=== PATIENT | male | born 1995 | race Caucasian/White ===

== ENCOUNTER 2017-04-02 02:16 | Observation (INO) | payer MEDICAID, OTHER ==
[2017-04-02] MEDS ORDERED: Acetaminophen 500 MG Tab PO ONE (02:41)
[2017-04-02] MEDS ORDERED: Ibuprofen 600 MG Tab PO ONE (03:37)
[2017-04-02] MEDS ORDERED: Sodium Chloride 0.9% 1,000 ML IV ONE ×2 (03:38→05:21)
[2017-04-02] MEDS ORDERED: Sodium Chloride 0.9% 10 ML Syringe FLUSH PRN (03:40)
[2017-04-02] MEDS: Sodium Chloride 0.9% 2.5 ML Syringe FLUSH PRN ×2 (03:43→04:16)
[2017-04-02] MEDS ORDERED: cefTRIAXone 2 GM in Premix Bag 1 BAG IV ONE (03:52)
[2017-04-02] MEDS ORDERED: Ondansetron 4 MG/2 ML SDV IVPUSH ONE (04:08)
[2017-04-02] MEDS ORDERED: HYDROmorphone 1 MG/ML Syringe IVPUSH ONE (04:08)
[2017-04-02 04:14] LABS: CHLORIDE,CL 104 mmol/L (98-110); SODIUM,NA 136 mmol/L (136-146)
[2017-04-02] MEDS ORDERED: HYDROmorphone 1 MG/ML Syringe IM ONE (05:11)
[2017-04-02] MEDS ORDERED: HYDROmorphone 1 MG/ML Syringe IV ONE (05:30)
--- NOTE | 2017-04-02 06:04 | PCM.SN ---
- Free Text/Narrative Note: Notified by Dr Adam for request for Lumbar puncture. I spoke with the patient and explained the risks and benefits of lumbar puncture including but not limited to: bleeding, infection, post dural puncture headache, and insertion site pain. At this time he wishes to proceed at this time. Pt was positioned lateral L3-4 interspace was palpated. Sterile technique was maintained. Betadine swab x 3, drape was placed. 1% lidocaine 3mL was infiltrated. 20g Spinal needle was introduced and I was unable to obtain CSF. Pt was re-positioned sitting, patient was re-prepped with betadine swab x 3. L3- 4 interspace was re-identified. 1% Lidocaine 3mL was infiltrated again, 20g Spinal needle was introduced and CSF return was obtained. 4 tubes each with 2mL of CSF was obtained. Tube 1 was blood tinged in color, tubes 2-4 were clear on visual inspection. Needle was withdrawn, back was cleaned, and bandaid was placed over the insertion site. Tubes 1-4 were sent to lab. Pt tolerated the procedure well.
--- NOTE | 2017-04-02 06:10 | PCM.PREANE ---
Preanesthetic Assessment - Procedure Proposed Procedure: Lumbar Puncture - Anesthesia/Transfusion/Family Hx Anesthesia History: Prior Anesthesia Without Reaction - Review of Systems General: Fever Pulmonary: No Symptoms Cardiovascular: No Symptoms Gastrointestinal: No Symptoms Neurological: Other (Severe Headache) Other: Reports: None - Physical Assessment O2 Sat by Pulse Oximetry: 92 Respiratory Rate: 18 Temperature: 99.8 F Vital Signs: Last Vital Signs Temp 99.8 F 04/02/17 05:33 Pulse 118 H 04/02/17 05:33 Resp 18 04/02/17 05:33 BP 136/64 04/02/17 04:23 Pulse Ox 92 L 04/02/17 05:33 Height: 6 ft 1 in Weight: 120.202 kg ASA Class: 2 Mental Status: Alert & Oriented x3 Airway Class: Mallampati = 2 Dentition: Reports: Normal Dentition Thyro-Mental Finger Breadths: 3 Mouth Opening Finger Breadths: 3 ROM/Head Extension: Full Lungs: Clear to Auscultation, Normal Respiratory Effort Cardiovascular: Regular Rhythm, Tachycardia - Lab Values: Laboratory Last Values WBC 14.79 K/uL (4.0-11.0) H 04/02/17 03:40 RBC 5.06 M/uL (4.50-5.90) 04/02/17 03:40 Hgb 15.0 g/dL (13.0-17.0) 04/02/17 03:40 Hct 41.8 % (38.0-50.0) 04/02/17 03:40 MCV 82.6 fL (80.0-98.0) 04/02/17 03:40 MCH 29.6 pg (27.0-32.0) 04/02/17 03:40 MCHC 35.9 g/dL (31.0-37.0) 04/02/17 03:40 RDW Std Deviation 39.3 fl (28.0-62.0) 04/02/17 03:40 RDW Coeff of Landry 13 % (11.0-15.0) 04/02/17 03:40 Plt Count 240 K/uL (150-400) 04/02/17 03:40 MPV 9.80 fL (7.40-12.00) 04/02/17 03:40 Neut % (Auto) 91.6 % (48.0-80.0) H 04/02/17 03:40 Lymph % (Auto) 3.9 % (16.0-40.0) L 04/02/17 03:40 [place] % (Auto) 4.3 % (0.0-15.0) 04/02/17 03:40 Eos % (Auto) 0.0 % (0.0-7.0) 04/02/17 03:40 Baso % (Auto) 0.2 % (0.0-1.5) 04/02/17 03:40 Neut # (Auto) 13.6 K/uL (1.4-5.7) H 04/02/17 03:40 Lymph # (Auto) 0.6 K/uL (0.6-2.4) 04/02/17 03:40 [place] # (Auto) 0.6 K/uL (0.0-0.8) 04/02/17 03:40 Eos # (Auto) 0.0 K/uL (0.0-0.7) 04/02/17 03:40 Baso # (Auto) 0.0 K/uL (0.0-0.1) 04/02/17 03:40 Nucleated RBC % 0.0 /100WBC 04/02/17 03:40 Nucleated RBCs # 0 K/uL 04/02/17 03:40 Lactate 2.5 mmol/L (0.20-2.00) H 04/02/17 03:40 Sodium 136 mmol/L (136-146) 04/02/17 03:40 Potassium 4.6 mmol/L (3.5-5.1) 04/02/17 03:40 Chloride 104 mmol/L (98-110) 04/02/17 03:40 Carbon Dioxide 22 mmol/L (21-31) 04/02/17 03:40 BUN 17 mg/dL (6.0-23.0) 04/02/17 03:40 Creatinine 0.9 mg/dL (0.6-1.5) 04/02/17 03:40 Est Cr Clr Drug Dosing 147.96 mL/min 04/02/17 03:40 Estimated GFR (MDRD) > 60.0 ml/min 04/02/17 03:40 Glucose 124 mg/dL (60-110) H 04/02/17 03:40 Calcium 9.5 mg/dL (8.8-10.8) 04/02/17 03:40 Total Bilirubin 0.6 mg/dL (0.1-1.5) 04/02/17 03:40 AST 27 IU/L (5-40) 04/02/17 03:40 ALT 32 IU/L (8-54) 04/02/17 03:40 Alkaline Phosphatase 76 (40-150) 04/02/17 03:40 Total Protein 7.2 g/dL (6.0-8.0) 04/02/17 03:40 Albumin 4.1 g/dL (3.5-5.0) 04/02/17 03:40 Globulin 3.1 g/dL (2.0-3.5) 04/02/17 03:40 Albumin/Globulin Ratio 1.3 (1.3-2.8) 04/02/17 03:40 Urine Color YELLOW 04/02/17 02:51 Urine Appearance CLEAR 04/02/17 02:51 Urine pH 6.0 (5.0-8.0) 04/02/17 02:51 Ur Specific [place] 1.020 (1.001-1.035) 04/02/17 02:51 Urine Protein NEGATIVE mg/dL (NEGATIVE) 04/02/17 02:51 Urine Glucose (UA) NEGATIVE mg/dL (NEGATIVE) 04/02/17 02:51 Urine Ketones NEGATIVE mg/dL (NEGATIVE) 04/02/17 02:51 Urine Occult Blood NEGATIVE (NEGATIVE) 04/02/17 02:51 Urine Nitrite NEGATIVE (NEGATIVE) 04/02/17 02:51 Urine Bilirubin NEGATIVE (NEGATIVE) 04/02/17 02:51 Urine Urobilinogen 0.2 EU/dL (<2.0) 04/02/17 02:51 Ur Leukocyte Esterase NEGATIVE (NEGATIVE) 04/02/17 02:51 Urine RBC 0-1 (0-2/HPF) 04/02/17 02:51 Urine WBC 0-1 (0-5/HPF) 04/02/17 02:51 Ur Epithelial Cells OCCASIONAL (NONE-FEW) 04/02/17 02:51 Urine Bacteria RARE (NEGATIVE) 04/02/17 02:51 Urine Opiates Screen NEGATIVE (NEGATIVE) 04/02/17 02:51 Ur Oxycodone Screen NEGATIVE (NEGATIVE) 04/02/17 02:51 Urine Methadone Screen NEGATIVE (NEGATIVE) 04/02/17 02:51 Ur Barbiturates Screen NEGATIVE (NEGATIVE) 04/02/17 02:51 Ur Phencyclidine Scrn NEGATIVE (NEGATIVE) 04/02/17 02:51 Ur Amphetamine Screen NEGATIVE (NEGATIVE) 04/02/17 02:51 U Methamphetamines Scrn NEGATIVE (NEGATIVE) 04/02/17 02:51 U Benzodiazepines Scrn NEGATIVE (NEGATIVE) 04/02/17 02:51 U Cocaine Metab Screen NEGATIVE (NEGATIVE) 04/02/17 02:51 U Marijuana (THC) Screen NEGATIVE (NEGATIVE) 04/02/17 02:51 - Allergies Allergies/Adverse Reactions: Allergies Allergy/AdvReac Type Severity Reaction Status Date / Time No Known Allergies Allergy Verified 04/02/17 02:19 - Anesthesia Plan Free Text/Narrative:: Pt was consented for Lumbar Puncture, risks and benefits were explained and the pt wishes to proceed at this time. No signs of cerebral hemorrhage are noted. Labs were reviewed. - Acknowledgements Pt an Appropriate Candidate for the Planned Anesthesia: Yes Alternatives and Risks of Anesthesia Discussed w Pt/Guardian: Yes Pt/Guardian Understands and Agrees with Anesthesia Plan: Yes PreAnesthesia Questionnaire HEENT History: Reports: None Cardiovascular History: Reports: None Respiratory History: Reports: None Gastrointestinal History: Reports: None Genitourinary History: Reports: None Musculoskeletal History: Reports: None Neurological History: Reports: None Psychiatric History: Reports: None Endocrine/Metabolic History: Reports: None Hematologic History: Reports: None Immunologic History: Reports: None Oncologic (Cancer) History: Reports: None Dermatologic History: Reports: None - Infectious Disease History Infectious Disease History: Reports: Chicken Pox, Meningitis (2015) - Past Surgical History HEENT Surgical History: Reports: None Cardiovascular Surgical History: Reports: None GI Surgical History: Reports: Appendectomy Endocrine Surgical History: Reports: None Musculoskeletal Surgical History: Reports: Other (See Below) - SUBSTANCE USE Smoking Status *Q: Never Smoker Recreational Drug Use History: No - HOME MEDS Home Medications: Home Meds . [No Known Home Meds] 03/01/16 [History] - CURRENT (IN HOUSE) MEDS Current Meds: Current Medications Sodium Chloride (Normal Saline) 1,000 mls @ 125 mls/hr IV STAT ONE Stop: 04/02/17 13:20 Last Admin: 04/02/17 05:28 Dose: 125 mls/hr Sodium Chloride (Saline Flush) 10 ml FLUSH ASDIRECTED PRN PRN Reason: Keep Vein Open Last Admin: 04/02/17 03:43 Dose: 10 ml Sodium Chloride (Saline Flush) 2.5 ml FLUSH ASDIRECTED PRN PRN Reason: Keep Vein Open Last Admin: 04/02/17 04:16 Dose: 2.5 ml Discontinued Medications Acetaminophen (Tylenol Extra Strength) 1,000 mg PO ONETIME ONE Stop: 04/02/17 02:42 Last Admin: 04/02/17 02:48 Dose: 1,000 mg Hydromorphone HCl (Dilaudid) 1 mg IVPUSH ONETIME ONE Stop: 04/02/17 04:09 Last Admin: 04/02/17 04:17 Dose: 1 mg Hydromorphone HCl (Dilaudid) 1 mg IM ONETIME ONE Stop: 04/02/17 05:12 Last Admin: 04/02/17 05:31 Dose: Not Given Hydromorphone HCl (Dilaudid) 1 mg IV ONETIME ONE Stop: 04/02/17 05:31 Last Admin: 04/02/17 05:31 Dose: 1 mg Sodium Chloride (Normal Saline) 1,000 mls @ 999 mls/hr IV STAT ONE Stop: 04/02/17 04:38 Last Infusion: 04/02/17 04:21 Dose: 200 mls/hr Ceftriaxone Sodium/Dextrose 2 (gm/ Premix) 50 mls @ 100 mls/hr IV ONETIME ONE Stop: 04/02/17 04:21 Last Admin: 04/02/17 04:20 Dose: 100 mls/hr Ibuprofen (Motrin) 600 mg PO ONETIME ONE Stop: 04/02/17 03:38 Last Admin: 04/02/17 03:42 Dose: 600 mg Ondansetron HCl (Zofran) 4 mg IVPUSH ONETIME ONE Stop: 04/02/17 04:09 Last Admin: 04/02/17 04:17 Dose: 4 mg
--- NOTE | 2017-04-02 06:54 | EDM.PDOC ---
ED HPI GENERAL MEDICAL PROBLEM - General Chief Complaint: General Stated Complaint: FEVER Time Seen by Provider: 04/02/17 03:47 - History of Present Illness INITIAL COMMENTS - FREE TEXT/NARRATIVE: HISTORY AND PHYSICAL: History of present illness: Patient's 21-year-old white male presents with concern of cough fever 1 day he denies vomiting diarrhea or other concern. Review of systems: As per history of present illness and below otherwise all systems reviewed and negative. Past medical history: As per history of present illness and as reviewed below otherwise noncontributory. Surgical history: As per history of present illness and as reviewed below otherwise noncontributory. Social history: No reported history of drug or alcohol abuse. Family history: As per history of present illness and as reviewed below otherwise noncontributory. Physical exam: HEENT: Atraumatic, normocephalic, pupils reactive, negative for conjunctival pallor or scleral icterus, mucous membranes moist, throat clear, neck supple, nontender, trachea midline. Lungs: Diminished slightly coarse, breath sounds equal bilaterally, chest nontender. Heart: S1S2, regular, negative for clicks, rubs, or JVD. Abdomen: Soft, nondistended, nontender. Negative for masses or hepatosplenomegaly. Negative for costovertebral tenderness. Pelvis: Stable nontender. Genitourinary: Deferred. Rectal: Deferred. Extremities: Atraumatic, negative for cords or calf pain. Neurovascular unremarkable. Neuro: Awake, alert, oriented. Cranial nerves II through XII unremarkable. Cerebellum unremarkable. Motor and sensory unremarkable throughout. Exam nonfocal. Diagnostics: CBC CMP blood cultures 2 influenza screen chest x-ray UA lactic acid Therapeutics: saline 1 L bolus Motrin 600 mg by mouth Impression: #1 fever Definitive disposition and diagnosis as appropriate pending reevaluation and review of above. Back Pain Score (Numeric/FACES): 7 headache Pain Score (Numeric/FACES): 7 - Related Data Allergies Allergy/AdvReac Type Severity Reaction Status Date / Time No Known Allergies Allergy Verified 04/02/17 02:19 Home Meds: Home Meds . [No Known Home Meds] 03/01/16 [History] Past Medical History HEENT History: Reports: None Cardiovascular History: Reports: None Respiratory History: Reports: None Gastrointestinal History: Reports: None Genitourinary History: Reports: None Musculoskeletal History: Reports: None Neurological History: Reports: None Psychiatric History: Reports: None Endocrine/Metabolic History: Reports: None Hematologic History: Reports: None Immunologic History: Reports: None Oncologic (Cancer) History: Reports: None Dermatologic History: Reports: None - Infectious Disease History Infectious Disease History: Reports: Chicken Pox - Past Surgical History HEENT Surgical History: Reports: None Cardiovascular Surgical History: Reports: None GI Surgical History: Reports: Appendectomy Endocrine Surgical History: Reports: None Musculoskeletal Surgical History: Reports: Other (See Below) Social & Family History - Family History Family Medical History: Noncontributory - Tobacco Use Smoking Status *Q: Never Smoker - Caffeine Use Caffeine Use: Reports: None - Recreational Drug Use Recreational Drug Use: No ED ROS GENERAL - Review of Systems Review Of Systems: ROS reveals no pertinent complaints other than HPI. ED EXAM, GENERAL - Physical Exam Exam: See Below (See dictation) Free Text/Narrative:: HISTORY AND PHYSICAL: History of present illness: Patient's 21-year-old white male presents with concern of cough fever 1 day he denies vomiting diarrhea or other concern. Review of systems: As per history of present illness and below otherwise all systems reviewed and negative. Past medical history: As per history of present illness and as reviewed below otherwise noncontributory. Surgical history: As per history of present illness and as reviewed below otherwise noncontributory. Social history: No reported history of drug or alcohol abuse. Family history: As per history of present illness and as reviewed below otherwise noncontributory. Physical exam: HEENT: Atraumatic, normocephalic, pupils reactive, negative for conjunctival pallor or scleral icterus, mucous membranes moist, throat clear, neck supple, nontender, trachea midline. Lungs: Diminished slightly coarse, breath sounds equal bilaterally, chest nontender. Heart: S1S2, regular, negative for clicks, rubs, or JVD. Abdomen: Soft, nondistended, nontender. Negative for masses or hepatosplenomegaly. Negative for costovertebral tenderness. Pelvis: Stable nontender. Genitourinary: Deferred. Rectal: Deferred. Extremities: Atraumatic, negative for cords or calf pain. Neurovascular unremarkable. Neuro: Awake, alert, oriented. Cranial nerves II through XII unremarkable. Cerebellum unremarkable. Motor and sensory unremarkable throughout. Exam nonfocal. Diagnostics: CBC CMP blood cultures 2 influenza screen chest x-ray UA lactic acid Therapeutics: saline 1 L bolus Motrin 600 mg by mouth Impression: #1 fever Definitive disposition and diagnosis as appropriate pending reevaluation and review of above. Course - Vital Signs Last Recorded V/S: Last Vital Signs Temp 37.7 C 04/02/17 06:10 Pulse 118 H 04/02/17 05:33 Resp 18 04/02/17 06:10 BP 136/64 04/02/17 04:23 Pulse Ox 92 L 04/02/17 06:10 - Orders/Labs/Meds Orders: Active Orders 24 hr Category Date Time Status Chest 1V Frontal [CR] Stat Exams 04/02/17 02:42 Taken CULTURE BLOOD [BC] Stat Lab 04/02/17 03:42 Received CULTURE BLOOD [BC] Stat Lab 04/02/17 03:48 Received CULTURE CSF + SMEAR [RM] Stat Lab 04/02/17 05:05 Received Sodium Chloride 0.9% [Normal Saline] 1,000 ml Med 04/02/17 05:21 Active IV STAT Sodium Chloride 0.9% [Saline Flush] Med 04/02/17 03:40 Active 10 ml FLUSH ASDIRECTED PRN Sodium Chloride 0.9% [Saline Flush] Med 04/02/17 03:40 Active 2.5 ml FLUSH ASDIRECTED PRN Blood Culture x2 Reflex Set [OM.PC] Stat Oth 04/02/17 03:37 Ordered Saline Lock Insert [OM.PC] Stat Oth 04/02/17 03:40 Ordered Medication Orders Sodium Chloride (Normal Saline) 1,000 mls @ 125 mls/hr IV STAT ONE Stop: 04/02/17 13:20 Last Admin: 04/02/17 05:28 Dose: 125 mls/hr Sodium Chloride (Saline Flush) 10 ml FLUSH ASDIRECTED PRN PRN Reason: Keep Vein Open Last Admin: 04/02/17 03:43 Dose: 10 ml Sodium Chloride (Saline Flush) 2.5 ml FLUSH ASDIRECTED PRN PRN Reason: Keep Vein Open Last Admin: 04/02/17 04:16 Dose: 2.5 ml Admin: 04/02/17 03:43 Dose: 2.5 ml Labs: Laboratory Tests 04/02/17 04/02/17 04/02/17 Range/Units 02:51 02:51 03:40 WBC 14.79 H (4.0-11.0) K/uL RBC 5.06 (4.50-5.90) M/uL Hgb 15.0 (13.0-17.0) g/dL Hct 41.8 (38.0-50.0) % MCV 82.6 (80.0-98.0) fL MCH 29.6 (27.0-32.0) pg MCHC 35.9 (31.0-37.0) g/dL RDW Std Deviation 39.3 (28.0-62.0) fl RDW Coeff of Landry 13 (11.0-15.0) % Plt Count 240 (150-400) K/uL MPV 9.80 (7.40-12.00) fL Neut % (Auto) 91.6 H (48.0-80.0) % Lymph % (Auto) 3.9 L (16.0-40.0) % [place] % (Auto) 4.3 (0.0-15.0) % Eos % (Auto) 0.0 (0.0-7.0) % Baso % (Auto) 0.2 (0.0-1.5) % Neut # (Auto) 13.6 H (1.4-5.7) K/uL Lymph # (Auto) 0.6 (0.6-2.4) K/uL [place] # (Auto) 0.6 (0.0-0.8) K/uL Eos # (Auto) 0.0 (0.0-0.7) K/uL Baso # (Auto) 0.0 (0.0-0.1) K/uL Nucleated RBC % 0.0 /100WBC Nucleated RBCs # 0 K/uL Lactate (0.20-2.00) mmol/L Sodium (136-146) mmol/L Potassium (3.5-5.1) mmol/L Chloride (98-110) mmol/L Carbon Dioxide (21-31) mmol/L BUN (6.0-23.0) mg/dL Creatinine (0.6-1.5) mg/dL Est Cr Clr Drug Dosing mL/min Estimated GFR (MDRD) ml/min Glucose (60-110) mg/dL Calcium (8.8-10.8) mg/dL Total Bilirubin (0.1-1.5) mg/dL AST (5-40) IU/L ALT (8-54) IU/L Alkaline Phosphatase (40-150) Total Protein (6.0-8.0) g/dL Albumin (3.5-5.0) g/dL Globulin (2.0-3.5) g/dL Albumin/Globulin Ratio (1.3-2.8) Urine Color YELLOW Urine Appearance CLEAR Urine pH 6.0 (5.0-8.0) Ur Specific [place] 1.020 (1.001-1.035) Urine Protein NEGATIVE (NEGATIVE) mg/dL Urine Glucose (UA) NEGATIVE (NEGATIVE) mg/dL Urine Ketones NEGATIVE (NEGATIVE) mg/dL Urine Occult Blood NEGATIVE (NEGATIVE) Urine Nitrite NEGATIVE (NEGATIVE) Urine Bilirubin NEGATIVE (NEGATIVE) Urine Urobilinogen 0.2 (<2.0) EU/dL Ur Leukocyte Esterase NEGATIVE (NEGATIVE) Urine RBC 0-1 (0-2/HPF) Urine WBC 0-1 (0-5/HPF) Ur Epithelial Cells OCCASIONAL (NONE-FEW) Urine Bacteria RARE (NEGATIVE) CSF Appearance CSF Color CSF WBC (0-0.005) K/uL CSF RBC (0.0-0.0) M/uL CSF Mononuclear Cells % CSF Polymorphonuclear % CSF Glucose (50-80) mg/dL CSF Total Protein (15-60) mg/dL Urine Opiates Screen NEGATIVE (NEGATIVE) Ur Oxycodone Screen NEGATIVE (NEGATIVE) Urine Methadone Screen NEGATIVE (NEGATIVE) Ur Barbiturates Screen NEGATIVE (NEGATIVE) Ur Phencyclidine Scrn NEGATIVE (NEGATIVE) Ur Amphetamine Screen NEGATIVE (NEGATIVE) U Methamphetamines Scrn NEGATIVE (NEGATIVE) U Benzodiazepines Scrn NEGATIVE (NEGATIVE) U Cocaine Metab Screen NEGATIVE (NEGATIVE) U Marijuana (THC) Screen NEGATIVE (NEGATIVE) 04/02/17 04/02/17 04/02/17 Range/Units 03:40 03:40 05:05 WBC (4.0-11.0) K/uL RBC (4.50-5.90) M/uL Hgb (13.0-17.0) g/dL Hct (38.0-50.0) % MCV (80.0-98.0) fL MCH (27.0-32.0) pg MCHC (31.0-37.0) g/dL RDW Std Deviation (28.0-62.0) fl RDW Coeff of Landry (11.0-15.0) % Plt Count (150-400) K/uL MPV (7.40-12.00) fL Neut % (Auto) (48.0-80.0) % Lymph % (Auto) (16.0-40.0) % [place] % (Auto) (0.0-15.0) % Eos % (Auto) (0.0-7.0) % Baso % (Auto) (0.0-1.5) % Neut # (Auto) (1.4-5.7) K/uL Lymph # (Auto) (0.6-2.4) K/uL [place] # (Auto) (0.0-0.8) K/uL Eos # (Auto) (0.0-0.7) K/uL Baso # (Auto) (0.0-0.1) K/uL Nucleated RBC % /100WBC Nucleated RBCs # K/uL Lactate 2.5 H (0.20-2.00) mmol/L Sodium 136 (136-146) mmol/L Potassium 4.6 (3.5-5.1) mmol/L Chloride 104 (98-110) mmol/L Carbon Dioxide 22 (21-31) mmol/L BUN 17 (6.0-23.0) mg/dL Creatinine 0.9 (0.6-1.5) mg/dL Est Cr Clr Drug Dosing 147.96 mL/min Estimated GFR (MDRD) > 60.0 ml/min Glucose 124 H (60-110) mg/dL Calcium 9.5 (8.8-10.8) mg/dL Total Bilirubin 0.6 (0.1-1.5) mg/dL AST 27 (5-40) IU/L ALT 32 (8-54) IU/L Alkaline Phosphatase 76 (40-150) Total Protein 7.2 (6.0-8.0) g/dL Albumin 4.1 (3.5-5.0) g/dL Globulin 3.1 (2.0-3.5) g/dL Albumin/Globulin Ratio 1.3 (1.3-2.8) Urine Color Urine Appearance Urine pH (5.0-8.0) Ur Specific [place] (1.001-1.035) Urine Protein (NEGATIVE) mg/dL Urine Glucose (UA) (NEGATIVE) mg/dL Urine Ketones (NEGATIVE) mg/dL Urine Occult Blood (NEGATIVE) Urine Nitrite (NEGATIVE) Urine Bilirubin (NEGATIVE) Urine Urobilinogen (<2.0) EU/dL Ur Leukocyte Esterase (NEGATIVE) Urine RBC (0-2/HPF) Urine WBC (0-5/HPF) Ur Epithelial Cells (NONE-FEW) Urine Bacteria (NEGATIVE) CSF Appearance CLEAR CSF Color COLORLESS CSF WBC 0.001 (0-0.005) K/uL CSF RBC 0.000 (0.0-0.0) M/uL CSF Mononuclear Cells 100.0 % CSF Polymorphonuclear 0.0 % CSF Glucose (50-80) mg/dL CSF Total Protein (15-60) mg/dL Urine Opiates Screen (NEGATIVE) Ur Oxycodone Screen (NEGATIVE) Urine Methadone Screen (NEGATIVE) Ur Barbiturates Screen (NEGATIVE) Ur Phencyclidine Scrn (NEGATIVE) Ur Amphetamine Screen (NEGATIVE) U Methamphetamines Scrn (NEGATIVE) U Benzodiazepines Scrn (NEGATIVE) U Cocaine Metab Screen (NEGATIVE) U Marijuana (THC) Screen (NEGATIVE) 04/02/17 04/02/17 Range/Units 05:05 05:05 WBC (4.0-11.0) K/uL RBC (4.50-5.90) M/uL Hgb (13.0-17.0) g/dL Hct (38.0-50.0) % MCV (80.0-98.0) fL MCH (27.0-32.0) pg MCHC (31.0-37.0) g/dL RDW Std Deviation (28.0-62.0) fl RDW Coeff of Landry (11.0-15.0) % Plt Count (150-400) K/uL MPV (7.40-12.00) fL Neut % (Auto) (48.0-80.0) % Lymph % (Auto) (16.0-40.0) % [place] % (Auto) (0.0-15.0) % Eos % (Auto) (0.0-7.0) % Baso % (Auto) (0.0-1.5) % Neut # (Auto) (1.4-5.7) K/uL Lymph # (Auto) (0.6-2.4) K/uL [place] # (Auto) (0.0-0.8) K/uL Eos # (Auto) (0.0-0.7) K/uL Baso # (Auto) (0.0-0.1) K/uL Nucleated RBC % /100WBC Nucleated RBCs # K/uL Lactate (0.20-2.00) mmol/L Sodium (136-146) mmol/L Potassium (3.5-5.1) mmol/L Chloride (98-110) mmol/L Carbon Dioxide (21-31) mmol/L BUN (6.0-23.0) mg/dL Creatinine (0.6-1.5) mg/dL Est Cr Clr Drug Dosing mL/min Estimated GFR (MDRD) ml/min Glucose (60-110) mg/dL Calcium (8.8-10.8) mg/dL Total Bilirubin (0.1-1.5) mg/dL AST (5-40) IU/L ALT (8-54) IU/L Alkaline Phosphatase (40-150) Total Protein (6.0-8.0) g/dL Albumin (3.5-5.0) g/dL Globulin (2.0-3.5) g/dL Albumin/Globulin Ratio (1.3-2.8) Urine Color Urine Appearance Urine pH (5.0-8.0) Ur Specific [place] (1.001-1.035) Urine Protein (NEGATIVE) mg/dL Urine Glucose (UA) (NEGATIVE) mg/dL Urine Ketones (NEGATIVE) mg/dL Urine Occult Blood (NEGATIVE) Urine Nitrite (NEGATIVE) Urine Bilirubin (NEGATIVE) Urine Urobilinogen (<2.0) EU/dL Ur Leukocyte Esterase (NEGATIVE) Urine RBC (0-2/HPF) Urine WBC (0-5/HPF) Ur Epithelial Cells (NONE-FEW) Urine Bacteria (NEGATIVE) CSF Appearance CSF Color CSF WBC (0-0.005) K/uL CSF RBC (0.0-0.0) M/uL CSF Mononuclear Cells % CSF Polymorphonuclear % CSF Glucose 82.0 H (50-80) mg/dL CSF Total Protein 29 (15-60) mg/dL Urine Opiates Screen (NEGATIVE) Ur Oxycodone Screen (NEGATIVE) Urine Methadone Screen (NEGATIVE) Ur Barbiturates Screen (NEGATIVE) Ur Phencyclidine Scrn (NEGATIVE) Ur Amphetamine Screen (NEGATIVE) U Methamphetamines Scrn (NEGATIVE) U Benzodiazepines Scrn (NEGATIVE) U Cocaine Metab Screen (NEGATIVE) U Marijuana (THC) Screen (NEGATIVE) Meds: Medications Generic Name Dose Route Start Last Admin Trade Name Freq PRN Reason Stop Dose Admin Sodium Chloride 1,000 mls @ 125 mls/hr 04/02/17 05:21 04/02/17 05:28 Normal Saline IV 04/02/17 13:20 125 mls/hr STAT ONE Administration Sodium Chloride 10 ml 04/02/17 03:40 04/02/17 03:43 Saline Flush FLUSH 10 ml ASDIRECTED PRN Administration Keep Vein Open Sodium Chloride 2.5 ml 04/02/17 03:40 04/02/17 04:16 Saline Flush FLUSH 2.5 ml ASDIRECTED PRN Administration Keep Vein Open Discontinued Medications Generic Name Dose Route Start Last Admin Trade Name Freq PRN Reason Stop Dose Admin Acetaminophen 1,000 mg 04/02/17 02:41 04/02/17 02:48 Tylenol Extra Strength PO 04/02/17 02:42 1,000 mg ONETIME ONE Administration Hydromorphone HCl 1 mg 04/02/17 04:08 04/02/17 04:17 Dilaudid IVPUSH 04/02/17 04:09 1 mg ONETIME ONE Administration Hydromorphone HCl 1 mg 04/02/17 05:11 04/02/17 05:31 Dilaudid IM 04/02/17 05:12 Not Given ONETIME ONE Hydromorphone HCl 1 mg 04/02/17 05:30 04/02/17 05:31 Dilaudid IV 04/02/17 05:31 1 mg ONETIME ONE Administration Sodium Chloride 1,000 mls @ 999 mls/hr 04/02/17 03:38 04/02/17 04:21 Normal Saline IV 04/02/17 04:38 200 mls/hr STAT ONE Infusion Ceftriaxone Sodium/Dextrose 2 50 mls @ 100 mls/hr 04/02/17 03:52 04/02/17 04: 20 gm/ Premix IV 04/02/17 04:21 100 mls/hr ONETIME ONE Administration Ibuprofen 600 mg 04/02/17 03:37 04/02/17 03:42 Motrin PO 04/02/17 03:38 600 mg ONETIME ONE Administration Ondansetron HCl 4 mg 04/02/17 04:08 04/02/17 04:17 Zofran IVPUSH 04/02/17 04:09 4 mg ONETIME ONE Administration Departure - Departure Time of Disposition: 06:53 Disposition: Refer to Observation Condition: Good Clinical Impression: Fever, Leukocytosis - Discharge Information Referrals: PCP,None [Primary Care Provider] - Forms: ED Department Discharge - My Orders Last 24 Hours: My Active Orders 04/02/17 02:42 Chest 1V Frontal [CR] Stat 04/02/17 03:37 Blood Culture x2 Reflex Set [OM.PC] Stat 04/02/17 03:40 Sodium Chloride 0.9% [Saline Flush] 10 ml FLUSH ASDIRECTED PRN Sodium Chloride 0.9% [Saline Flush] 2.5 ml FLUSH ASDIRECTED PRN Saline Lock Insert [OM.PC] Stat 04/02/17 03:42 CULTURE BLOOD [BC] Stat 04/02/17 03:48 CULTURE BLOOD [BC] Stat 04/02/17 05:05 CULTURE CSF + SMEAR [RM] Stat 04/02/17 05:21 Sodium Chloride 0.9% [Normal Saline] 1,000 ml IV STAT - Assessment/Plan Last 24 Hours: My Active Orders 04/02/17 02:42 Chest 1V Frontal [CR] Stat 04/02/17 03:37 Blood Culture x2 Reflex Set [OM.PC] Stat 04/02/17 03:40 Sodium Chloride 0.9% [Saline Flush] 10 ml FLUSH ASDIRECTED PRN Sodium Chloride 0.9% [Saline Flush] 2.5 ml FLUSH ASDIRECTED PRN Saline Lock Insert [OM.PC] Stat 04/02/17 03:42 CULTURE BLOOD [BC] Stat 04/02/17 03:48 CULTURE BLOOD [BC] Stat 04/02/17 05:05 CULTURE CSF + SMEAR [RM] Stat 04/02/17 05:21 Sodium Chloride 0.9% [Normal Saline] 1,000 ml IV STAT
[2017-04-02] MEDS: Enoxaparin 40 MG/0.4 ML Syringe SUBCUT SCH (11:19)
[2017-04-02] MEDS ORDERED: Acetaminophen 325 MG Tab PO PRN (12:09)
--- NOTE | 2017-04-02 12:12 | PCM.HP ---
H&P History of Present Illness - General Date of Service: 04/02/17 Admit Problem/Dx: Admission Diagnosis/Problem Admission Diagnosis/Problem Fever - History of Present Illness Initial Comments - Free Text/Narative: 21-year-old male with a history of meningitis back in 2016 presented to the emergency department earlier this morning complaining of a headache along with fever. This patient tells me that at around midnight today, he woke up with a 10 on 10 headache along with subjective fevers and chills. He tells me that his girlfriend who lives with himsimilar symptoms as well. He denies any blurry vision, ear pain, neck pain, chest pain. However, he does feel short of breath which has improved. He denies any sick contacts aside from his girlfriend, recent travel. He does tell me that his carbon monoxide alarm had been going off the past few days. Onset of symptoms however are more recent. She tells me that in 2016 when he had an otitis, he was hospitalized for one week and treated with antibiotics. ER course: Lumbar puncture - unremarkable , Gram stain negative with culture pending CBC mild leukocytosis 14,000 CMP unremarkable Negative for influenza, strep screen Chest x-ray unremarkable 600 mg Motrin IV normal saline bolus 2 2 g Rocephin 1 Blood cultures Elevated lactate 1 mg IM Dilaudid 3 Back Pain Score (Numeric/FACES): 7 headache Pain Score (Numeric/FACES): 3 - Related Data Allergies/Adverse Reactions: Allergies Allergy/AdvReac Type Severity Reaction Status Date / Time No Known Allergies Allergy Verified 04/02/17 02:19 Home Medications: Home Meds . [No Known Home Meds] 03/01/16 [History] Past Medical History HEENT History: Reports: None Cardiovascular History: Reports: None Respiratory History: Reports: None Gastrointestinal History: Reports: None Genitourinary History: Reports: None Musculoskeletal History: Reports: None Other Musculoskeletal History: left knee surgery, L5 fracture Neurological History: Reports: None Psychiatric History: Reports: None Endocrine/Metabolic History: Reports: None Hematologic History: Reports: None Immunologic History: Reports: None Oncologic (Cancer) History: Reports: None Dermatologic History: Reports: None - Infectious Disease History Infectious Disease History: Reports: Chicken Pox, Meningitis Other Infectious Disease History: spinal meningitis age 18 in [facility]. - Past Surgical History HEENT Surgical History: Reports: None Cardiovascular Surgical History: Reports: None GI Surgical History: Reports: Appendectomy Endocrine Surgical History: Reports: None Musculoskeletal Surgical History: Reports: Other (See Below) Social & Family History - Family History Family Medical History: Noncontributory - Tobacco Use Smoking Status *Q: Never Smoker Second Hand Smoke Exposure: Yes - Caffeine Use Caffeine Use: Reports: Soda - Recreational Drug Use Recreational Drug Use: No H&P Review of Systems - Review of Systems: Review Of Systems: See Below General: Reports: Fever, Chills HEENT: Reports: Headaches Pulmonary: Reports: Shortness of Breath Cardiovascular: Reports: No Symptoms Gastrointestinal: Reports: No Symptoms Genitourinary: Reports: No Symptoms, Flank Pain Skin: Reports: No Symptoms Psychiatric: Reports: No Symptoms Neurological: Reports: Headache. Denies: Seizure, Syncope Hematologic/Lymphatic: Reports: No Symptoms Immunologic: Reports: No Symptoms Exam - Exam Exam: See Below - Vital Signs Vital Signs: Last Vital Signs Temp 36.9 C 04/02/17 08:15 Pulse 96 04/02/17 08:15 Resp 18 04/02/17 08:15 BP 113/56 L 04/02/17 08:15 Pulse Ox 97 04/02/17 08:15 Weight: 122.606 kg - Exam Quality Assessment: Supplemental Oxygen General: Alert, Oriented, Cooperative, Other (No acute distress) HEENT: Conjunctiva Clear, EACs Clear, EOMI, Mucosa Moist & [place], TMs Clear Neck: Supple, Trachea Midline, Full Range of Motion. No: Lymphadenopathy, Thyromegaly Lungs: Clear to Auscultation, Normal Respiratory Effort Cardiovascular: Regular Rate, Regular Rhythm, Normal S1, Normal S2 GI/Abdominal Exam: Normal Bowel Sounds, Soft, Non-Tender, No Organomegaly Back Exam: Normal Inspection, Full Range of Motion. No: CVA Tenderness (L), CVA Tenderness (R) Extremities: Normal Inspection, Normal Range of Motion, Non-Tender, No Pedal Edema, Normal Capillary Refill Peripheral Pulses: 2+: Posterior Tibial (L), Posterior Tibial (R) Skin: Warm Neurological: Cranial Nerves Intact Neuro Extensive - Mental Status: Alert, Oriented x3, Normal Mood/Affect, Memory Intact Neuro Extensive - Motor, Sensory, Reflexes: CN II-XII Intact Psychiatric: Alert, Normal Affect, Normal Mood - Patient Data Lab Results Last 24 hrs: Laboratory Results - last 24 hr 04/02/17 Range/Units 11:56 Lactate 0.7 (0.20-2.00) mmol/L Result Diagrams: 04/02/17 03:40 04/02/17 03:40 *Q Meaningful Use (ADM) - VTE *Q VTE Criteria *Q: - Stroke *Q Stroke Criteria *Q: - AMI *Q AMI Criteria *Q: Problem List Initiated/Reviewed/Updated: Yes Orders Last 24hrs: Active Orders 24 hr Category Date Time Status Oxygen Therapy [RC] PRN Care 04/02/17 10:33 Active Up ad Tonia [RC] ASDIRECTED Care 04/02/17 10:33 Active VTE/DVT Education [RC] PER UNIT ROUTINE Care 04/02/17 10:33 Active Vital Signs [RC] Q4H Care 04/02/17 10:33 Active Regular Diet [DIET] Diet 04/02/17 Lunch Active Head wo Cont [CT] Routine Exams 04/02/17 10:44 Stop Req Head wo Cont [CT] Stat Exams 04/02/17 10:45 Ordered CBC WITH AUTO DIFF [HEME] AM Lab 04/03/17 05:11 Ordered COMPREHENSIVE METABOLIC PN,CMP [CHEM] AM Lab 04/03/17 05:11 Ordered HIV12 AG/AB 4TH GEN W/REFLEX [CHEM] Routine Lab 04/02/17 05:48 Received Acetaminophen [Tylenol] Med 04/02/17 12:09 Ordered 650 mg PO Q4H PRN Enoxaparin [Lovenox] Med 04/02/17 10:45 Active 40 mg SUBCUT DAILY Sodium Chloride 0.9% [Normal Saline] 1,000 ml Med 04/02/17 10:45 Active IV STAT Resuscitation Status Routine Resus Stat 04/02/17 10:33 Ordered Medication Orders Acetaminophen (Tylenol) 650 mg PO Q4H PRN PRN Reason: Pain/Fever Enoxaparin Sodium (Lovenox) 40 mg SUBCUT DAILY SYLVESTER Last Admin: 04/02/17 11:19 Dose: 40 mg Sodium Chloride (Normal Saline) 1,000 mls @ 125 mls/hr IV STAT SYLVESTER Sodium Chloride (Saline Flush) 10 ml FLUSH ASDIRECTED PRN PRN Reason: Keep Vein Open Last Admin: 04/02/17 03:43 Dose: 10 ml Sodium Chloride (Saline Flush) 2.5 ml FLUSH ASDIRECTED PRN PRN Reason: Keep Vein Open Last Admin: 04/02/17 04:16 Dose: 2.5 ml Admin: 04/02/17 03:43 Dose: 2.5 ml Assessment/Plan Comment:: Assessment: #1. Fever #2. Headache #3. History of meningitis #4. Mild leukocytosis Plan: #1. Admit to the floor for observation. Vital signs per floor routine. Lovenox for DVT prophylaxis. #2. Head CT without contrast. At this point I feel that the patient has gotten a significant amount of Dilaudid that could be masking His headache and a possible etiology for it. #3. IV normal saline 125 mL an hour #4. Tylenol 650 mg by mouth every 6 hours when necessary for pain/fever #5. Follow up on CSF culture, blood culture #6. Repeat lactate #7. CBC, CMP for tomorrow morning #8. Patient received 2 g of Rocephin in the emergency department. Given the clinical picture, I don't feel that this is meningitis and the patient appears to be very comfortable showing no signs of nuchal rigidity, is afebrile and has no headache at the time of examination. We can hold off on further antibiotic treatment. Clinical suspicion at this time is more towards a viral etiology. #9. Carboxyhemoglobin level for possible carbon monoxide poisoning #10. Mononucleosis screen
[2017-04-02] MEDS: Sodium Chloride 0.9% 1,000 ML IV SCH ×2 (13:12→21:41)
--- NOTE | 2017-04-02 14:52 | CR ---
EXAM DATE: 04/02/17 PATIENT'S AGE: 21 Patient: RAUL HIDALGO Facility: [place], [place] Site . Site : 1995 Study: XRay Chest [id number]/23/2018 3:08:36 AM Ordering Physician: Doctor Hopper Final Report: INDICATION: Chest Pain, shortness of breath TECHNIQUE: Chest radiograph 1 view COMPARISON: None FINDINGS: Moderate degradation of image quality noted due to body habitus. Mediastinum: The heart silhouette is normal in size and morphology. The mediastinum is normal in appearance. Lungs: Both lungs are unremarkable in appearance. No sign of pleural effusion seen. No pneumothorax is identified. Bones and soft tissue: Unremarkable for age. IMPRESSION: 1. No acute cardiopulmonary disease is seen. Dictated by: Sunday Jefferson MD @ 04/02/2017 03:12:34 (Electronic Signature) Report Signed by Proxy. INEZ
--- NOTE | 2017-04-02 14:53 | CT ---
EXAMINATION: Non contrast CT head. Coronal and sagittal reformats. HISTORY: Headache FINDINGS: No evidence of intra or extra axial hemorrhage, mass, midline shift, hydrocephalus or edema. No hypoattenuation changes in the major vascular territories to suggest acute infarct. No abnormal intracranial calcifications are detected. No evidence of substantial vascular calcificat ions. Paranasal sinuses and mastoid air cells are well aerated without substantial findings. Orbits and gl obes are symmetric. Pituitary fossa appears unremarkable. Calvarium is intact. No evidence of skull fracture. IMPRESSION: No acute intracranial findings.
[2017-04-03 06:26] LABS: CHLORIDE,CL 108 mmol/L (98-110); SODIUM,NA 140 mmol/L (136-146)
[2017-04-03] MEDS: Enoxaparin 40 MG/0.4 ML Syringe SUBCUT SCH (08:00)
[2017-04-03 08:52] VITALS: BP 126/66
--- NOTE | 2017-04-03 13:44 | PCM.DCSUM1 ---
Discharge Summary - Hospital Course Free Text/Narrative:: Admission date: April 02, 2017 Discharge date: April 03, 2017 Admission diagnosis: 1.fever 2.headache 3.mild leukocytosis 4.history of meningitis Discharge diagnoses: 1.fever resolved 2. Headache resolved 3.leukocytosis resolved Hospital course: 21-year-old male that presented to the emergency department in the middle the night complaining of a headache along with subjective fevers and nausea. Max temperature recorded in emergency department was as high as 40.9. Lumbar puncture was obtained with suspected meningitis given the patient's history along with the presentation. This was unremarkable. He was admitted for observation and further workup. While in the hospital, we test for HIV, Anderson, and obtained a head CT scan. All these tests came back unremarkable. The patient told me that his carbon monoxide alarm at his house had been going off for the past few days. Carboxyhemoglobin level was normal. The next morning, repeat labs indicated a resolution of leukocytosis. The rest of his labs also appeared unremarkable. When asked, the patient was asymptomatic. He told me that his headache had resolved and denied any subjective fevers or chills, chest pain palpitations nausea or vomiting. He is advised to get his house checked out for possible carbon monoxide leak. He is also advised to follow-up with the primary care provider within the next 1-2 weeks. - Discharge Data Discharge Date: 04/03/17 Discharge Disposition: Home, Self-Care 01 Condition: Good - Discharge Plan Home Medications: Home Meds . [No Known Home Meds] 03/01/16 [History] Patient Handouts: Fever, Adult Referrals: Bradley Limon MD [Resident] - 04/09/17 1:30 pm - Discharge Summary/Plan Comment Discharge Summary/Plan Comment: Admission date: April 02, 2017 Discharge date: April 03, 2017 Admission diagnosis: 1.fever 2.headache 3.mild leukocytosis 4.history of meningitis Discharge diagnoses: 1.fever resolved 2. Headache resolved 3.leukocytosis resolved Hospital course: 21-year-old male that presented to the emergency department in the middle the night complaining of a headache along with subjective fevers and nausea. Max temperature recorded in emergency department was as high as 40.9. Lumbar puncture was obtained with suspected meningitis given the patient's history along with the presentation. This was unremarkable. He was admitted for observation and further workup. While in the hospital, we test for HIV, Anderson, and obtained a head CT scan. All these tests came back unremarkable. The patient told me that his carbon monoxide alarm at his house had been going off for the past few days. Carboxyhemoglobin level was normal. The next morning, repeat labs indicated a resolution of leukocytosis. The rest of his labs also appeared unremarkable. When asked, the patient was asymptomatic. He told me that his headache had resolved and denied any subjective fevers or chills, chest pain palpitations nausea or vomiting. He is advised to get his house checked out for possible carbon monoxide leak. He is also advised to follow-up with the primary care provider within the next 1-2 weeks. - Patient Data Vitals - Most Recent: Last Vital Signs Temp 36.8 C 04/03/17 08:00 Pulse 86 04/03/17 08:00 Resp 18 04/03/17 08:00 BP 126/66 04/03/17 08:00 Pulse Ox 93 L 04/03/17 08:00 Weight - Most Recent: 122.606 kg I&O - Last 24 hours: Intake & Output 04/02/17 04/03/17 04/03/17 22:59 06:59 14:59 Intake Total 1520 150 Output Total 900 900 Balance 620 -750 Lab Results - Last 24 hrs: Laboratory Results - last 24 hr 04/03/17 04/03/17 Range/Units 04:01 05:11 WBC 7.44 (4.0-11.0) K/uL RBC 4.50 (4.50-5.90) M/uL Hgb 13.2 (13.0-17.0) g/dL Hct 38.0 (38.0-50.0) % MCV 84.4 (80.0-98.0) fL MCH 29.3 (27.0-32.0) pg MCHC 34.7 (31.0-37.0) g/dL RDW Std Deviation 40.2 (28.0-62.0) fl RDW Coeff of Landry 13 (11.0-15.0) % Plt Count 195 (150-400) K/uL MPV 9.80 (7.40-12.00) fL Neut % (Auto) 70.0 (48.0-80.0) % Lymph % (Auto) 19.0 (16.0-40.0) % Anderson % (Auto) 9.4 (0.0-15.0) % Eos % (Auto) 1.3 (0.0-7.0) % Baso % (Auto) 0.3 (0.0-1.5) % Neut # (Auto) 5.2 (1.4-5.7) K/uL Lymph # (Auto) 1.4 (0.6-2.4) K/uL Anderson # (Auto) 0.7 (0.0-0.8) K/uL Eos # (Auto) 0.1 (0.0-0.7) K/uL Baso # (Auto) 0.0 (0.0-0.1) K/uL Nucleated RBC % 0.0 /100WBC Nucleated RBCs # 0 K/uL Sodium 140 (136-146) mmol/L Potassium 4.5 (3.5-5.1) mmol/L Chloride 108 (98-110) mmol/L Carbon Dioxide 22 (21-31) mmol/L BUN 16 (6.0-23.0) mg/dL Creatinine 0.8 (0.6-1.5) mg/dL Est Cr Clr Drug Dosing 166.46 mL/min Estimated GFR (MDRD) > 60.0 ml/min Glucose 91 (60-110) mg/dL Calcium 8.4 L (8.8-10.8) mg/dL Total Bilirubin 0.6 (0.1-1.5) mg/dL AST 15 (5-40) IU/L ALT 24 (8-54) IU/L Alkaline Phosphatase 62 (40-150) Total Protein 5.8 L (6.0-8.0) g/dL Albumin 3.7 (3.5-5.0) g/dL Globulin 2.1 (2.0-3.5) g/dL Albumin/Globulin Ratio 1.8 (1.3-2.8) Med Orders - Current: Current Medications Acetaminophen (Tylenol) 650 mg PO Q4H PRN PRN Reason: Pain/Fever Last Admin: 04/02/17 12:35 Dose: 650 mg Enoxaparin Sodium (Lovenox) 40 mg SUBCUT DAILY [facility] Last Admin: 04/03/17 08:00 Dose: 40 mg Sodium Chloride (Normal Saline) 1,000 mls @ 125 mls/hr IV STAT [facility] Last Admin: 04/02/17 21:41 Dose: 125 mls/hr Sodium Chloride (Saline Flush) 10 ml FLUSH ASDIRECTED PRN PRN Reason: Keep Vein Open Last Admin: 04/02/17 03:43 Dose: 10 ml Sodium Chloride (Saline Flush) 2.5 ml FLUSH ASDIRECTED PRN PRN Reason: Keep Vein Open Last Admin: 04/02/17 04:16 Dose: 2.5 ml Discontinued Medications Acetaminophen (Tylenol Extra Strength) 1,000 mg PO ONETIME ONE Stop: 04/02/17 02:42 Last Admin: 04/02/17 02:48 Dose: 1,000 mg Hydromorphone HCl (Dilaudid) 1 mg IVPUSH ONETIME ONE Stop: 04/02/17 04:09 Last Admin: 04/02/17 04:17 Dose: 1 mg Hydromorphone HCl (Dilaudid) 1 mg IM ONETIME ONE Stop: 04/02/17 05:12 Last Admin: 04/02/17 05:31 Dose: Not Given Hydromorphone HCl (Dilaudid) 1 mg IV ONETIME ONE Stop: 04/02/17 05:31 Last Admin: 04/02/17 05:31 Dose: 1 mg Sodium Chloride (Normal Saline) 1,000 mls @ 999 mls/hr IV STAT ONE Stop: 04/02/17 04:38 Last Infusion: 04/02/17 04:21 Dose: 200 mls/hr Ceftriaxone Sodium/Dextrose 2 (gm/ Premix) 50 mls @ 100 mls/hr IV ONETIME ONE Stop: 04/02/17 04:21 Last Admin: 04/02/17 04:20 Dose: 100 mls/hr Sodium Chloride (Normal Saline) 1,000 mls @ 125 mls/hr IV STAT ONE Stop: 04/02/17 13:20 Last Admin: 04/02/17 05:28 Dose: 125 mls/hr Ceftriaxone Sodium 2,000 mg/ (Sodium Chloride) 50 mls @ 200 mls/hr IV Q12H [place] Last Admin: 04/02/17 12:06 Dose: Not Given Ibuprofen (Motrin) 600 mg PO ONETIME ONE Stop: 04/02/17 03:38 Last Admin: 04/02/17 03:42 Dose: 600 mg Ondansetron HCl (Zofran) 4 mg IVPUSH ONETIME ONE Stop: 04/02/17 04:09 Last Admin: 04/02/17 04:17 Dose: 4 mg *Q Meaningful Use (DIS) - VTE *Q VTE Criteria *Q: - Stroke *Q Stroke Criteria *Q: - AMI *Q AMI Criteria *Q:
== END 2017-04-03 12:48 | disposition home or self-care (01) ==
LOC: MW.ED 02:16 → MW.MS 06:54
PROVIDERS: ADMIT Internal Medicine; ATTEND Internal Medicine
DX: R50.9 Fever, unspecified (principal); R51 Headache; D72.829 Elevated white blood cell count, unspecified; Z90.49 Acquired absence of other specified parts of digestive tract
CPT/HCPCS: 36415; 62270; 70450; 71045; 80053; 80305; 81001; 82375; 82945; 83605; 84157; 85025; 86308; 87040; 87070; 87205; 87389; 87804; 89050; 96361; 96365; 96372; 96375; 96376; 99284; A9270; G0378; J0696; J1170; J1650; J2405; J7040; 99283

== ENCOUNTER 2018-05-18 16:14 | Emergency (ER) | payer OTHER ==
[2018-05-18 16:34] VITALS: BP 149/83
[2018-05-18] MEDS ORDERED: Sodium Chloride 0.9% 10 ML Syringe FLUSH PRN (16:42)
[2018-05-18] MEDS ORDERED: Sodium Chloride 0.9% 2.5 ML Syringe FLUSH PRN (16:42)
[2018-05-18] MEDS ORDERED: Ondansetron 4 MG/2 ML SDV IVPUSH ONE (16:43)
[2018-05-18] MEDS ORDERED: Morphine 10 MG/ML Syringe IM ONE (16:43)
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
[2018-05-18 17:16] LABS: CHLORIDE,CL 107 mmol/L (98-107); SODIUM,NA 141 mmol/L (136-148)
[2018-05-18] MEDS ORDERED: Iopamidol 755 MG/ML 500 ML Multipack Bottle IVPUSH STA (17:21)
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
--- NOTE | 2018-05-18 17:39 | CR ---
HISTORY: Left hip pain. Fall. TECHNIQUE: AP pelvis and 2 views of the left hip. COMPARISON: CT 05/18/2018. FINDINGS: No acute fracture. No hip dislocation. No hip joint space narrowing. Pubic symphysis and sacroiliac joints appear grossly maintained. IMPRESSION: No acute fracture or dislocation. Dictated by Desmond Smart MD @ 05/18/2018 5:37:32 PM Dictated by: Desmond Smart MD @ 05/18/2018 17:37:40 (Electronically Signed)
== END 2018-05-18 18:20 | disposition home or self-care (01) ==
LOC: MW.ED 16:14
DX: S30.0XXA Contusion of lower back and pelvis, initial encounter (principal); Z90.49 Acquired absence of other specified parts of digestive tract; V86.92XA Unspecified occupant of snowmobile injured in nontraffic accident, initial encounter
CPT/HCPCS: 36415; 73502; 74177; 80053; 85025; 96374; 96375; 99284; J2270; J2405; Q9967; 99283

== ENCOUNTER 2018-10-19 17:10 | Emergency (ER) | payer OTHER ==
--- NOTE | 2018-10-19 18:22 | CR ---
Indication: Injury and pain. Technique: Right knee 3 views Comparison: None Findings: Bones: Alignment is normal. No fractures. Possible flattening of the lateral femoral condyle. Joint spaces: Suprapatellar joint effusion. Soft tissues: Unremarkable. Impression: No displaced fracture. Suprapatellar joint effusion. Possible subtle osteochondral injury to the lateral femoral condyle. Dictated by Andrei Nascimento MD @ Oct 19 2018 6:19PM Signed by Dr. Andrei Nascimento @ Oct 19 2018 6:20PM
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
[2018-10-19 19:04] VITALS: BP 152/85; PULSE 92
== END 2018-10-19 18:50 | disposition home or self-care (01) ==
LOC: MW.ED 17:10
DX: S89.91XA Unspecified injury of right lower leg, initial encounter (principal); Z90.49 Acquired absence of other specified parts of digestive tract; V86.56XA Driver of dirt bike or motor/cross bike injured in nontraffic accident, initial encounter
CPT/HCPCS: 73562-26-RT; 73562-RT; 99283; 99283-25